=== PATIENT | female | born 1950 | race Caucasian/White ===

== ENCOUNTER → 2023-11-09 14:24 | Outpatient (REF) | payer MEDICARE, OTHER, SELFPAY | LOC: PAVMRI 14:24 | PROVIDERS: ATTENDING PHYSICIAN Internal Medicine; REFERRING PHYSICIAN Physical Medicine & Rehabilitation | DX: M25.552 Pain in left hip (principal) | CPT/HCPCS: 73721 ==

== ENCOUNTER → 2023-12-08 07:31 | Outpatient (REF) | payer MEDICARE, OTHER, SELFPAY | LOC: MRI 3T 07:31 | PROVIDERS: ATTENDING PHYSICIAN Specialist; FAMILY PHYSICIAN Internal Medicine | DX: M54.16 Radiculopathy, lumbar region (principal) | CPT/HCPCS: 72148; A9575 ==

== ENCOUNTER → 2023-12-14 09:05 | Outpatient (REF) | payer MEDICARE, OTHER, SELFPAY | LOC: RCS 09:05 | PROVIDERS: ATTENDING PHYSICIAN Physical Medicine & Rehabilitation; FAMILY PHYSICIAN Internal Medicine | DX: Z01.818 Encounter for other preprocedural examination (principal) | CPT/HCPCS: 93005 ==

== ENCOUNTER → 2024-02-12 10:42 | Outpatient (REF) | payer MEDICARE, OTHER, SELFPAY | LOC: WDC 10:42 | PROVIDERS: ATTENDING PHYSICIAN Obstetrics & Gynecology; FAMILY PHYSICIAN Internal Medicine | DX: R92.2 Inconclusive mammogram (principal); Z80.3 Family history of malignant neoplasm of breast | CPT/HCPCS: 76641 ==

== ENCOUNTER 2024-02-26 10:53 | Emergency (ER) | payer MEDICARE, OTHER, SELFPAY ==
[2024-02-26 10:55] VITALS: BP 121/60
[2024-02-26 11:08] VITALS: BP 121/64
[2024-02-26 11:22] LABS: % Basophils 0.4 % (0-2); % Eosinophils 0.9 % (0-6); % Immature Granulocytes 0.7 % (0-0.5); % Lymphocytes 17.1 % (20.5-51.1); % Monocytes 4.8 % (1.7-9.3); % Neutrophils 76.1 % (42.2-75.2); Absolute Eosinophils 0.1 10^3/uL (0-0.7); Absolute Immature Granulocytes 0.1 10^3/uL (0-0.05); Absolute Lymphocytes 1.8 10^3/uL (1.2-3.4); Absolute Monocytes 0.5 10^3/uL (0.1-0.6); Absolute Neutrophils 7.9 10^3/uL (1.4-6.5); Hematocrit 38.8 % (37.0-47.0); Hemoglobin 13.2 g/dL (12.0-16.0); Mean Corpuscular Volume 88.2 fL (81.0-99.0); Mean Platelet Volume 9.6 fL (7.4-10.4); Nucleated Red Blood Cells % 0 %; Platelet Count 230 10^3/uL (130-400); White Blood Cell Count 10.4 10^3/uL (4.8-10.8)
--- NOTE | 2024-02-26 11:31 | ED.GENMED ---
History of Present Illness
General
Chief Complaint: Cardiac Symptoms
Time Seen by Provider: 02/26/24 11:06
History of Present Illness
History of Present Illness:
76-year-old female with history of hyperlipidemia and hypothyroidism presents to the emergency department for evaluation of exertional shortness of breath and generalized tremors as well as dizziness that began [place] She does note that over the past few months she has had decreased exercise tolerance and shortness of breath with simple activities such as walking upstairs or walking the dog. Denies any associated fevers or chills. Currently has no
symptoms. No history of coronary artery disease, does have a strong family history of CAD. Has never undergone a cardiac cath. Last stress test was greater than 10 years ago. Non-smoker
Past History
Past History
ED Past Medical History: Hypothyroidism and Other (Diverticulitis, kidney stones)
ED Past Surgical History: Bowel resection and Gynecological (Uterine embolization)
Social History
Tobacco: Non-smoker
Personal:
Review of Systems
Review of Systems
Allergies reviewed?: Yes
All Other Systems: ROS reviewed and negative except as documented in HPI and ROS
Phy Exam
Physical Exam
Physical Exam:
GEN: Well appearing, NAD, WDWN
HEENT: Oral mucosa moist, no scleral icterus
Cardiac: Regular rate and rhythm, no murmurs
Lung: No respiratory distress, no tachypnea, lungs clear to auscultation bilaterally
MSK: No gross deformity or injuries, no lower extremity edema
Skin: Good color, no pallor or jaundice, no rashes
Neuro: AO x3, moves all extremities freely
Psych: Calm, cooperative
Scores
Heart Score for Chest Pain Patients
STEMI patient?: No
History: Moderately Suspicious
ECG: Normal
Age: >/= 65 years
Risk Factors: 1 or 2 Risk Factors
Troponin: </= Normal Limit
Heart Score for Chest Pain Patients: 4
Heart Score Risk: 20.3% MACE over next 6 weeks
Course
Orders/Labs/Results
Orders:
Orders
02/26/24 10:58
ECG [Electrocardiogram (*1)] Urgent
Reason for Study: Chest Pain
EKG- Treatment ONCE
02/26/24 11:10
Cardiac Monitoring- Treatment ONCE
IV Insert/Care/Rem.- Treatment PRN
O2 Therapy [RESP] Urgent
Titrate/Wean O2 to maintain O2 sat greater than (%): 90
Special Instructions: Maintain sats >/=90%
Pulse Ox/spot Check [RESP] Urgent
Quantity: 1
Special Instructions: ON ROOM AIR
02/26/24 11:12
Complete Blood Count/With Diff Urgent
Comprehensive Metabolic Panel Urgent
Troponin I Urgent
02/26/24 11:31
CR Chest - 2 Views Urgent
Comment:
Reason For Exam: chest pain
02/26/24 12:14
EKG- Treatment ONCE
02/26/24 14:13
Troponin I Routine
02/26/24 14:15
EKG [Electrocardiogram (*1)] Routine
Reason for Study: Chest Pain
Abnormal Lab Results
02/26/24
11:12
Abs Immat Gran (auto) 0.1 H 10^3/uL
(0-0.05)
Absolute Neuts (auto) 7.9 H 10^3/uL
(1.4-6.5)
Immature Gran % 0.7 H %
(0-0.5)
Neutrophils % 76.1 H %
(42.2-75.2)
Lymphocytes % 17.1 L %
(20.5-51.1)
Carbon Dioxide 32 H mmol/L
(22-30)
BUN 25 H mg/dl
(7-17)
Glucose 112 H mg/dl
(70-99)
Calcium 10.6 H mg/dl
(8.4-10.2)
AST 39 H U/L
(14-36)
02/26/24 11:12
02/26/24 11:12
Vital Signs
Initial and Last Documented VS:
Initial Vital Signs
Temp Pulse Resp BP Pulse Ox
98.0 F 74 20 121/60 98
02/26/24 10:55 02/26/24 10:55 02/26/24 10:55 02/26/24 10:55 02/26/24 10:55
Last Documented Vital Signs
Temp Pulse Resp BP Pulse Ox
98.0 F 67 27 106/67 98
02/26/24 10:55 02/26/24 14:00 02/26/24 14:00 02/26/24 14:00 02/26/24 10:55
MDM/Problems Addressed
MDM/Problems Addressed:
73-year-old female presenting with dyspnea on exertion, initial EKG and troponin are reassuring. Repeat EKG and troponin also. Patient does have coronary risk factors including hyperlipidemia and family history heart score of 4. I discussed the
case with cardiology who did not feel that emergent consultation was uric acid however were able to schedule patient for close outpatient follow-up in 6 days to determine next steps for potential ischemic workup. Patient is clinically stable with
no rest symptoms thus I feel this is appropriate. Recommend that she started 81mg aspirin daily preventively
Comment
Comment:
EKG independently interpreted by me shows a normal sinus rhythm with questionable ST depressions laterally, no change compared to prior, QTc of 451
*Critical Care Note
Total Time (30-74mins, 75-104mins- exclusive of procedures): Not Applicable
ED Attending Note
-
Portions of this chart may have been created with voice recognition software.� Occasional wrong word or��sound alike� substitutions may have occurred due to the inherent limitations of voice recognition software.
Discharge Plan
Departure
Patient Disposition: Home (Routine Discharge)
Date of Disposition: 02/26/24
Time of Disposition: 15:01
Patient with high blood pressure during this ER visit?: No
Discharge Problem:
Dyspnea on exertion
Instructions: Shortness of Breath, Adult ED
Prescriptions:
No Action
ondansetron HCl 4 MG tablet
4 mg PO Q8HPRN PRN (Reason: nausea) Qty: 10 0RF
carisoprodol 350 MG tablet
350 mg PO HS PRN (Reason: sleep/pain)
chlorthalidone 25 MG tablet
25 mg PO DAILY
acetaminophen [Tylenol Extra Strength] 500 MG tablet
1,000 mg PO Q6HPRN PRN (Reason: pain)
potassium citrate 10 MEQ tablet extended release
40 meq PO BID
levothyroxine 50 MCG tablet
50 mcg PO DAILY
ibuprofen [Advil] 200 MG tablet
400 mg PO PRN PRN (Reason: pain)
rosuvastatin 10 MG tablet
10 mg PO QPM
escitalopram oxalate 5 MG tablet
5 mg PO DAILY
Patient Comments:
pt states she takes this every other day
Calcium Citrate
500 mg PO HS
Lactobacillus Capsule
1 tab PO DAILY
Magnesium
1,035 mg PO HS
Turmeric
300 mg PO DAILY
Vitamin D3:
1,000 units PO DAILY
phenazopyridine 100 MG tablet
200 mg PO TID
Referrals:
Lona Alarcon MD [Family Provider] -
Stacie Petersen MD [Active] - 03/03/24 11:20 am
Interventions
Interventions:
*Risk Screen - Suicide Last Done: 02/26/24 10:55
*General Assessment Last Done: 02/26/24 10:55
*Neglect/Abuse Screening Last Done: 02/26/24 10:55
ED- Fall Risk Assessment Last Done: 02/26/24 11:40
ED- Pulmonary Assessment Last Done: 02/26/24 11:40
ED- Cardiac Assessment Last Done: 02/26/24 11:40
Discharge Date and Time
Print Language: INDIAN
[2024-02-26 11:37] LABS: ALT (SGPT) 32 U/L (0-35); AST (SGOT) 39 U/L (14-36); Albumin 4.7 g/dl (3.5-5.0); Alkaline Phosphatase 68 U/L (38-126); Blood Urea Nitrogen 25 mg/dl (7-17); Calcium 10.6 mg/dl (8.4-10.2); Carbon Dioxide 32 mmol/L (22-30); Chloride 99 mmol/L (98-107); Glucose 112 mg/dl (70-99); Potassium 3.8 mmol/L (3.5-5.1); Sodium 140 mmol/L (135-145); Total Bilirubin 1.2 mg/dl (0.2-1.3); Total Protein 7.1 g/dl (6.3-8.2); eGFR > 60.00
[2024-02-26 11:40] VITALS: BMI 27.2
[2024-02-26 11:49] LABS: Troponin I < 0.012 ng/ml
[2024-02-26 12:21] VITALS: BP 127/84
[2024-02-26 13:00] VITALS: BP 115/62
[2024-02-26 14:00] VITALS: BP 106/67
[2024-02-26 14:59] LABS: Troponin I < 0.012 ng/ml
[2024-02-26 15:00] VITALS: BP 107/59
== END 2024-02-26 15:56 | disposition home or self-care (01) ==
LOC: EMR 10:53
PROVIDERS: Physician Assistant; EMERGENCY PHYSICIAN Emergency Medicine; FAMILY PHYSICIAN Internal Medicine
DX: R06.09 Other forms of dyspnea (principal); E78.5 Hyperlipidemia, unspecified; E03.9 Hypothyroidism, unspecified
CPT/HCPCS: 99285; 71046; 80053; 84484; 85025; 93005

== ENCOUNTER → 2024-05-11 09:27 | Outpatient (REF) | payer MEDICARE, OTHER, SELFPAY | LOC: HWWDC 09:27 | PROVIDERS: ATTENDING PHYSICIAN Obstetrics & Gynecology; FAMILY PHYSICIAN Internal Medicine | DX: Z12.31 Encounter for screening mammogram for malignant neoplasm of breast (principal) | CPT/HCPCS: 77063; 77067 ==

== ENCOUNTER → 2024-05-20 04:00 | Outpatient (REF) | payer MEDICARE, OTHER, SELFPAY | LOC: DHSLP 04:00 | PROVIDERS: ATTENDING PHYSICIAN Internal Medicine Critical Care Medicine; FAMILY PHYSICIAN Internal Medicine | DX: G47.33 Obstructive sleep apnea (adult) (pediatric) (principal) | CPT/HCPCS: 95800 ==

== ENCOUNTER → 2024-06-08 09:56 | Outpatient (REF) | payer MEDICARE, OTHER, SELFPAY | LOC: RAD 09:56 | PROVIDERS: ATTENDING PHYSICIAN Obstetrics & Gynecology; FAMILY PHYSICIAN Internal Medicine; REFERRING PHYSICIAN Internal Medicine Endocrinology, Diabetes & Metabolism | DX: R93.89 Abnormal findings on diagnostic imaging of other specified body structures (principal); D25.9 Leiomyoma of uterus, unspecified | CPT/HCPCS: 76830; 76856 ==

== ENCOUNTER → 2024-06-27 19:18 | Outpatient (REF) | payer MEDICARE, OTHER, SELFPAY | LOC: MRI 19:18 | PROVIDERS: ATTENDING PHYSICIAN Obstetrics & Gynecology; FAMILY PHYSICIAN Internal Medicine | DX: R93.89 Abnormal findings on diagnostic imaging of other specified body structures (principal) | CPT/HCPCS: 72197; A9575 ==

== ENCOUNTER → 2024-10-06 12:45 | Outpatient (REF) | payer MEDICARE, OTHER, SELFPAY | LOC: RAD 12:45 | PROVIDERS: ATTENDING PHYSICIAN Physician Assistant Surgical; FAMILY PHYSICIAN Internal Medicine | DX: M25.562 Pain in left knee (principal) | CPT/HCPCS: 73560 ==

== ENCOUNTER → 2024-12-16 12:58 | Outpatient (REF) | payer MEDICARE, OTHER, SELFPAY | LOC: RAD 12:58 | PROVIDERS: ATTENDING PHYSICIAN Neurological Surgery; FAMILY PHYSICIAN Internal Medicine; REFERRING PHYSICIAN Psychiatry & Neurology Neurology | DX: M43.16 Spondylolisthesis, lumbar region (principal) | CPT/HCPCS: 72114 ==

== ENCOUNTER → 2025-01-07 10:37 | Outpatient (REF) | payer MEDICARE, OTHER, SELFPAY | LOC: PAVMRI 10:37 | PROVIDERS: ATTENDING PHYSICIAN Internal Medicine; OTHER PHYSICIAN Neurological Surgery; REFERRING PHYSICIAN Neurological Surgery | DX: M48.061 Spinal stenosis, lumbar region without neurogenic claudication (principal) | CPT/HCPCS: 72148 ==

== ENCOUNTER → 2025-02-12 13:17 | Outpatient (REF) | payer MEDICARE, OTHER, SELFPAY | LOC: PAVMRI 13:17 | PROVIDERS: ATTENDING PHYSICIAN Nurse Practitioner Family; FAMILY PHYSICIAN Internal Medicine | DX: R29.898 Other symptoms and signs involving the musculoskeletal system (principal); M54.2 Cervicalgia | CPT/HCPCS: 72141 ==

== ENCOUNTER → 2025-03-24 11:15 | Outpatient (REF) | payer MEDICARE, OTHER, SELFPAY | LOC: RAD 11:15 | PROVIDERS: ATTENDING PHYSICIAN Specialist; FAMILY PHYSICIAN Internal Medicine; REFERRING PHYSICIAN Psychiatry & Neurology Neurology | DX: N20.0 Calculus of kidney (principal); M47.816 Spondylosis without myelopathy or radiculopathy, lumbar region | CPT/HCPCS: 72110; 74018 ==

== ENCOUNTER → 2025-03-29 13:29 | Outpatient (REF) | payer MEDICARE, OTHER, SELFPAY | LOC: HWRAD 13:29 | PROVIDERS: ATTENDING PHYSICIAN Specialist; FAMILY PHYSICIAN Internal Medicine; REFERRING PHYSICIAN Psychiatry & Neurology Neurology | DX: N20.0 Calculus of kidney (principal); M25.552 Pain in left hip | CPT/HCPCS: 73502; 74176 ==

== ENCOUNTER → 2025-04-14 18:21 | Outpatient (REF) | payer MEDICARE, OTHER, SELFPAY | LOC: MRI 18:21 | PROVIDERS: ATTENDING PHYSICIAN Psychiatry & Neurology Neurology; FAMILY PHYSICIAN Internal Medicine | DX: R51.9 Headache, unspecified (principal); R42 Dizziness and giddiness; R29.5 Transient paralysis | CPT/HCPCS: 70544; 70549; A9585 ==

== ENCOUNTER → 2025-06-02 10:31 | Outpatient (REF) | payer MEDICARE, OTHER, SELFPAY | LOC: HWRAD 10:31 | PROVIDERS: ATTENDING PHYSICIAN Internal Medicine Endocrinology, Diabetes & Metabolism; FAMILY PHYSICIAN Internal Medicine | DX: Z78.0 Asymptomatic menopausal state (principal); Z12.31 Encounter for screening mammogram for malignant neoplasm of breast; M85.80 Other specified disorders of bone density and structure, unspecified site | CPT/HCPCS: 77080 ==

== ENCOUNTER → 2025-06-12 10:45 | Outpatient (REF) | payer MEDICARE, OTHER, SELFPAY | LOC: WDC 10:45 | PROVIDERS: ATTENDING PHYSICIAN Obstetrics & Gynecology; FAMILY PHYSICIAN Internal Medicine | DX: Z12.31 Encounter for screening mammogram for malignant neoplasm of breast (principal) | CPT/HCPCS: 77063; 77067 ==

== ENCOUNTER 2025-07-06 06:16 | Day surgery (SDC) | payer MEDICARE, OTHER, SELFPAY | END 2025-07-06 11:49 | disposition home or self-care (01) | LOC: GI 06:16 | PROVIDERS: ATTENDING PHYSICIAN Internal Medicine Gastroenterology | DX: Z12.11 Encounter for screening for malignant neoplasm of colon (principal); K64.8 Other hemorrhoids; K57.30 Diverticulosis of large intestine without perforation or abscess without bleeding; R12 Heartburn; R93.3 Abnormal findings on diagnostic imaging of other parts of digestive tract; K44.9 Diaphragmatic hernia without obstruction or gangrene; K31.7 Polyp of stomach and duodenum; K31.89 Other diseases of stomach and duodenum; Z98.0 Intestinal bypass and anastomosis status; Z86.0100 Personal history of colon polyps, unspecified; Z80.0 Family history of malignant neoplasm of digestive organs | CPT/HCPCS: 43239; G0105; 88305; 88342 ==

== ENCOUNTER → 2025-08-08 16:42 | Outpatient (REF) | payer MEDICARE, OTHER, SELFPAY | LOC: RAD 16:42 | PROVIDERS: ATTENDING PHYSICIAN Physician Assistant Surgical; FAMILY PHYSICIAN Internal Medicine | DX: M25.559 Pain in unspecified hip (principal) | CPT/HCPCS: 73502 ==